=== PATIENT | female | born 1995 | race Two or more races ===

== ENCOUNTER 2016-12-19 22:32 | Emergency (ER) | payer MEDICAID ==
[~2016-12-19] VITALS: Ht 165.1 cm; Wt 92.5 kg
[2016-12-20 00:20] VITALS: BP 130/78
== END 2016-12-20 02:10 | disposition home or self-care (01) ==
LOC: ER 22:35
DX: O9A.213 Injury, poisoning and certain other consequences of external causes complicating pregnancy, third trimester (principal); T65.891A Toxic effect of other specified substances, accidental (unintentional), initial encounter; Z3A.29 29 weeks gestation of pregnancy; Y92.89 Other specified places as the place of occurrence of the external cause

== ENCOUNTER 2017-02-09 11:25 | Observation (INO) | payer MEDICAID ==
[2017-02-09 13:17] LABS: Basophils # (auto) 0 uL; Basophils % (auto) 0.4 % (0.0-2.0); Eosinophils # (auto) 0 uL; Eosinophils % (auto) 0.4 % (0.0-7.0); Monocytes # (auto) 0.5 uL; Monocytes % (auto) 6.4 % (0.0-12.0); Nucleated Red Blood Cells % 0.1 %
[2017-02-09 13:19] LABS: Hematocrit 30.5 % (36.0-46.0); Hemoglobin 10.2 g/dL (12.2-16.2); Lymphocytes # (auto) 2.1 uL; Lymphocytes % (auto) 26.1 % (10.0-50.0); Mean Corpuscular Hemoglobin 26.8 pg (28.0-32.0); Mean Corpuscular Hgb Conc. 33.3 g/dL (32.0-36.0); Mean Corpuscular Volume 80.5 fL (80.0-100.0); Neutrophils # (auto) 5.4 uL; Neutrophils % (auto) 66.7 % (37.0-80.0); Platelet Count (auto) 180 10^3/uL (140-450); Red Cell Distribution Width 14.9 % (11.8-14.3); White Blood Cell 8.1 10^3/uL (4.4-10.8)
[2017-02-09] MEDS ORDERED: PREN-96 PO (14:26)
== END 2017-02-09 14:35 | disposition home or self-care (01) | DRG 566 ==
LOC: LDRP 11:25
PROVIDERS: ADMIT Obstetrics & Gynecology; ATTEND Obstetrics & Gynecology
DX: O24.410 Gestational diabetes mellitus in pregnancy, diet controlled (principal); Z3A.36 36 weeks gestation of pregnancy
CPT/HCPCS: 36415; 59025; 76805; 76818; 81002; 82962; 83036; 85025; 86592; 87081; G0378

== ENCOUNTER 2017-02-13 11:30 | Observation (INO) | payer MEDICAID ==
[~2017-02-13 11:30] MED LIST: PREN-96 PO
== END 2017-02-13 13:35 | disposition home or self-care (01) | DRG 566 ==
LOC: LDRP 11:30
PROVIDERS: ADMIT Specialist; ATTEND Specialist
DX: O24.419 Gestational diabetes mellitus in pregnancy, unspecified control (principal); Z3A.36 36 weeks gestation of pregnancy
CPT/HCPCS: 59025; 76818; 81002; G0378

== ENCOUNTER 2017-02-17 14:31 | Observation (INO) | payer MEDICAID | END 2017-02-17 16:50 | disposition home or self-care (01) | DRG 566 | LOC: LDRP 14:31 | PROVIDERS: ADMIT Obstetrics & Gynecology; ATTEND Obstetrics & Gynecology | DX: O24.410 Gestational diabetes mellitus in pregnancy, diet controlled (principal); Z3A.37 37 weeks gestation of pregnancy | CPT/HCPCS: 59025; 76818; 81002; 82962; G0378 ==

== ENCOUNTER 2017-02-20 11:10 | Observation (INO) | payer MEDICAID | END 2017-02-20 13:45 | disposition home or self-care (01) | DRG 566 | LOC: LDRP 11:10 | PROVIDERS: ADMIT Obstetrics & Gynecology; ATTEND Obstetrics & Gynecology | DX: O24.419 Gestational diabetes mellitus in pregnancy, unspecified control (principal); Z87.891 Personal history of nicotine dependence; Z3A.37 37 weeks gestation of pregnancy | CPT/HCPCS: 59025; 76818; 81002; 82962; G0378 ==

== ENCOUNTER 2017-02-21 08:02 | Observation (INO) | payer MEDICAID | END 2017-02-21 09:10 | disposition home or self-care (01) | DRG 566 | LOC: LDRP 08:02 | PROVIDERS: ADMIT Obstetrics & Gynecology; ATTEND Obstetrics & Gynecology | DX: O24.419 Gestational diabetes mellitus in pregnancy, unspecified control (principal); Z3A.38 38 weeks gestation of pregnancy | CPT/HCPCS: 36415; 59025; 76815; 80307; 81002; 82948; 82962; 83036; G0378 ==

== ENCOUNTER 2017-02-24 11:10 | Observation (INO) | payer MEDICAID ==
[2017-02-27] MEDS ORDERED: GLYB1.257 PO (17:08)
== END 2017-02-24 14:05 | disposition home or self-care (01) | DRG 566 ==
LOC: LDRP 11:10
PROVIDERS: ADMIT Obstetrics & Gynecology; ATTEND Obstetrics & Gynecology
DX: O24.414 Gestational diabetes mellitus in pregnancy, insulin controlled (principal); Z3A.38 38 weeks gestation of pregnancy
CPT/HCPCS: 59025; 76805; 76818; 81002; 82962; G0378

== ENCOUNTER 2018-06-15 01:49 | Emergency (ER) | payer MEDICAID ==
[~2018-06-15] VITALS: Ht 165.1 cm; Wt 63.5 kg
[~2018-06-15 01:49] MED LIST changes: +GLYB1.257 PO
[2018-06-15 02:16] VITALS: BP 122/77
== END 2018-06-15 05:27 | disposition home or self-care (01) ==
LOC: EDBD 01:49 → ER 01:54
DX: S40.212A Abrasion of left shoulder, initial encounter (principal); M62.838 Other muscle spasm; M54.2 Cervicalgia; Z79.84 Long term (current) use of oral hypoglycemic drugs; V49.49XA Driver injured in collision with other motor vehicles in traffic accident, initial encounter; Y93.89 Activity, other specified; Y99.8 Other external cause status; Y92.89 Other specified places as the place of occurrence of the external cause
CPT/HCPCS: 70450; 73030